=== PATIENT | female | born 1945 | race Caucasian/White ===

== ENCOUNTER 2016-09-11 08:53 | Day surgery (SDC) | payer OTHER ==
[~2016-09-11] VITALS: Ht 157.5 cm; Wt 90.7 kg
[~2016-09-11 08:53] MED LIST: CALCITRIOL0.25 MCG PO; DEXILANT60 MG PO; ESTROVEN 155 M155 MG PO; GABAPENTIN300 MG PO; LEXAPRO20 MG PO; LO-DOSE ASPIRIN81 M2 PO; NITROFURANTOIN100 MG PO; OMEPRAZOLE40 M1 PO; OXAYDO7.5 MG PO; TIZANIDINE HCL2 MG PO; XANAX1 MG PO
== END 2016-09-11 10:53 | disposition home or self-care (01) ==
LOC: PAIN 08:53 → SDC 09:30 → PAIN 09:30
PROC: 3E0S33Z Introduction of Anti-inflammatory into Epidural Space, Percutaneous Approach (ICD-10-PCS; principal; 2016-09-11)
DX: M54.16 Radiculopathy, lumbar region (principal); M47.896 Other spondylosis, lumbar region; F41.1 Generalized anxiety disorder; M48.06 Spinal stenosis, lumbar region; Z79.82 Long term (current) use of aspirin; M62.838 Other muscle spasm
CPT/HCPCS: J1030; J2250; J3010

== ENCOUNTER 2016-10-02 09:23 | Day surgery (SDC) | payer OTHER ==
[~2016-10-02] VITALS: Ht 157.5 cm; Wt 90.7 kg
[~2016-10-02 09:23] MED LIST changes: +PERCOCET 10/1 TABLET PO
== END 2016-10-02 11:00 | disposition home or self-care (01) ==
LOC: PAIN 09:23 → SDC 10:00 → PAIN 11:00
PROC: 3E0S33Z Introduction of Anti-inflammatory into Epidural Space, Percutaneous Approach (ICD-10-PCS; principal; 2016-10-02)
DX: M54.16 Radiculopathy, lumbar region (principal); G89.29 Other chronic pain; F41.9 Anxiety disorder, unspecified; M62.838 Other muscle spasm; M48.06 Spinal stenosis, lumbar region; M17.0 Bilateral primary osteoarthritis of knee; F32.9 Major depressive disorder, single episode, unspecified; K21.9 Gastro-esophageal reflux disease without esophagitis; G47.00 Insomnia, unspecified; J30.9 Allergic rhinitis, unspecified; Z79.82 Long term (current) use of aspirin; Z88.0 Allergy status to penicillin; Z88.2 Allergy status to sulfonamides; Z88.8 Allergy status to other drugs, medicaments and biological substances
CPT/HCPCS: J1100; J2250; J3010

== ENCOUNTER 2017-01-27 08:32 | Day surgery (SDC) | payer OTHER ==
[~2017-01-27] VITALS: Ht 157.5 cm; Wt 99.8 kg
[~2017-01-27 08:32] MED LIST changes: +MACROBID100 MG PO
== END 2017-01-27 10:20 | disposition home or self-care (01) ==
LOC: PAIN 08:32 → SDC 09:30 → PAIN 09:30
DX: M47.26 Other spondylosis with radiculopathy, lumbar region (principal); M48.06 Spinal stenosis, lumbar region; M62.838 Other muscle spasm; M17.0 Bilateral primary osteoarthritis of knee; F41.8 Other specified anxiety disorders; K21.9 Gastro-esophageal reflux disease without esophagitis; Z82.79 Family history of other congenital malformations, deformations and chromosomal abnormalities; Z88.0 Allergy status to penicillin; Z82.2 Family history of deafness and hearing loss
CPT/HCPCS: J1030; J2250; J3010; S0020

== ENCOUNTER 2017-02-03 08:40 | Day surgery (SDC) | payer OTHER ==
[~2017-02-03] VITALS: Ht 157.5 cm; Wt 99.8 kg
== END 2017-02-03 10:45 | disposition home or self-care (01) ==
LOC: PAIN 08:40 → SDC 09:30 → PAIN 09:30
DX: M47.26 Other spondylosis with radiculopathy, lumbar region (principal); M54.5 Low back pain; G89.29 Other chronic pain; M62.838 Other muscle spasm; F41.8 Other specified anxiety disorders; K21.9 Gastro-esophageal reflux disease without esophagitis; M48.06 Spinal stenosis, lumbar region; Z79.82 Long term (current) use of aspirin; E66.3 Overweight; Z68.41 Body mass index [BMI] 40.0-44.9, adult
CPT/HCPCS: J1030; J2250; J3010; S0020